=== PATIENT | male | born 1950 | race Caucasian/White ===

== ENCOUNTER 2018-06-11 08:47 | Emergency (ER) | payer OTHER ==
[~2018-06-11] VITALS: Ht 172.7 cm; Wt 86.2 kg
[~2018-06-11 08:47] MED LIST: ALPR.5 PO; ASPI81CH PO; Aldactone25 MG PO; BENAML20/5 PO; CARV3.125 PO; Cardizem Cd180 MG PO; ELIQUIS5 MG PO; LOSA25 PO; Lopressor 25 mg25 MG GT; NEBI5 PO; OMEP20ER PO; SITA100T2 PO; XARELTO20 MG PO
[2018-06-11 09:52] LABS: BASOPHILS ABSOLUTE AUTO 0.05 K/mm3 (0.00-0.23); BASOPHILS PERCENT AUTO 1 % (0-2); EOSINOPHILS ABSOLUTE AUTO 0.08 K/mm3 (0.00-0.68); EOSINOPHILS PERCENT AUTO 1 % (0-6); Hematocrit 40.5 % (37.0-53.0); Hemoglobin 13.8 g/dL (13.5-17.5); IMMATURE GRAN ABSOLUTE AUTO 0.09 K/mm3 (0.00-0.10); IMMATURE GRAN PERCENT AUTO 1 % (0-1); LYMPHOCYTES ABSOLUTE AUTO 1.07 K/mm3 (0.84-5.20); LYMPHOCYTES PERCENT AUTO 16 % (21-46); MONOCYTES ABSOLUTE AUTO 1.06 K/mm3 (0.16-1.47); MONOCYTES PERCENT AUTO 16 % (4-13); Mean Corpuscular HGB 36.4 pg (26.0-34.0); Mean Corpuscular HGB Conc 34.1 g/dL (31.5-36.5); Mean Corpuscular Volume 107 fL (80-100); Mean Platelet Volume 10.9 fL (9.1-12.4); NEUTROPHILS ABSOLUTE AUTO 4.38 K/mm3 (1.96-9.15); NEUTROPHILS PERCENT AUTO 65 % (41-73); Platelet Count 125 K/mm3 (150-400); RDW Coefficient Variation 12.9 % (11.7-14.2); RDW Standard Deviation 51.1 fL (35.1-46.3); Red Blood Cell Count 3.79 M/mm3 (4.30-5.90); White Blood Cell Count 6.73 K/mm3 (4.00-11.30)
[2018-06-11 10:14] LABS: Alanine Aminotransfer (ALT/SGP 42 U/L (12-78); Albumin, Blood 3.9 g/dL (3.4-5.0); Albumin/Globulin Ratio 1.1 (0.8-1.8); Alk Phos 84 U/L (50-136); Anion Gap 10 mmol/L (6-16); Aspartate Aminotrans (AST/SGOT 120 U/L (12-37); Bilirubin, Total 1.5 mg/dL (0.1-1.0); Blood Urea Nitrogen 10 mg/dL (8-24); Bun/Creatinine Ratio 10.5 (12.0-20.0); CO2, Blood 27 mmol/L (21-32); Calcium, Blood 9.1 mg/dL (8.5-10.1); Chloride, Blood 100 mmol/L (98-108); Creatinine, Blood 0.96 mg/dL (0.60-1.20); Globulin, Blood 3.7 g/dL (2.2-4.0); Glomerular Filtration Rate >60 (60-); Glucose, Blood 118 mg/dL (70-99); Potassium, Blood 3.5 mmol/L (3.5-5.5); Sodium, Blood 137 mmol/L (136-145); Total Protein, Blood 7.6 g/dL (6.4-8.2)
[2018-06-11] MEDS ORDERED: CHLO25 PO (12:00)
[2018-06-11] MEDS ORDERED: Cardizem CD 12120 MG PO (12:00)
== END 2018-06-11 12:20 | disposition home or self-care (01) ==
LOC: ER 08:47
PROVIDERS: Emergency Medicine
DX: I48.91 Unspecified atrial fibrillation (principal); K85.90 Acute pancreatitis without necrosis or infection, unspecified; F10.10 Alcohol abuse, uncomplicated; I10 Essential (primary) hypertension; F17.200 Nicotine dependence, unspecified, uncomplicated
CPT/HCPCS: 36415; 71046; 80053; 83690; 83880; 84484; 85025; 93005; 93010; 96361; 96374; 96375; 99284-25; J2405; J7120

== ENCOUNTER 2018-06-25 17:42 | Emergency (ER) | payer OTHER ==
[~2018-06-25] VITALS: Ht 177.8 cm; Wt 86.2 kg
[~2018-06-25 17:42] MED LIST changes: +CHLO25 PO; +Cardizem CD 12120 MG PO
== END 2018-06-25 19:13 | disposition home or self-care (01) ==
LOC: ER 17:42
DX: F10.129 Alcohol abuse with intoxication, unspecified (principal); S50.312A Abrasion of left elbow, initial encounter; I10 Essential (primary) hypertension; I48.91 Unspecified atrial fibrillation; F17.200 Nicotine dependence, unspecified, uncomplicated; Z79.899 Other long term (current) drug therapy; W18.30XA Fall on same level, unspecified, initial encounter
CPT/HCPCS: 99283

== ENCOUNTER 2018-10-24 08:45 | Inpatient (IN) | payer OTHER ==
[~2018-10-24] VITALS: Ht 177.8 cm; Wt 73.3 kg
[2018-10-24 09:10] LABS: BASOPHILS ABSOLUTE AUTO 0.08 K/mm3 (0.00-0.23); BASOPHILS PERCENT AUTO 1 % (0-2); EOSINOPHILS ABSOLUTE AUTO 0.12 K/mm3 (0.00-0.68); EOSINOPHILS PERCENT AUTO 2 % (0-6); Hematocrit 40.4 % (37.0-53.0); Hemoglobin 14.1 g/dL (13.5-17.5); IMMATURE GRAN ABSOLUTE AUTO 0.05 K/mm3 (0.00-0.10); IMMATURE GRAN PERCENT AUTO 1 % (0-1); LYMPHOCYTES ABSOLUTE AUTO 1.89 K/mm3 (0.84-5.20); LYMPHOCYTES PERCENT AUTO 26 % (21-46); MONOCYTES PERCENT AUTO 14 % (4-13); Mean Corpuscular HGB 33.8 pg (26.0-34.0); Mean Corpuscular HGB Conc 34.9 g/dL (31.5-36.5); Mean Corpuscular Volume 97 fL (80-100); Mean Platelet Volume 11.3 fL (9.1-12.4); NEUTROPHILS ABSOLUTE AUTO 4.22 K/mm3 (1.96-9.15); NEUTROPHILS PERCENT AUTO 57 % (41-73); Platelet Count 90 K/mm3 (150-400); RDW Coefficient Variation 16.7 % (11.7-14.2); RDW Standard Deviation 59.9 fL (35.1-46.3); Red Blood Cell Count 4.17 M/mm3 (4.30-5.90); White Blood Cell Count 7.36 K/mm3 (4.00-11.30)
[2018-10-24 09:30] LABS: Prothrombin Time Results 10.8 Sec (9.7-11.5)
[2018-10-24 09:34] LABS: International Normalized Ratio 1.02
[2018-10-24 09:35] LABS: Alanine Aminotransfer (ALT/SGP 72 U/L (12-78); Albumin, Blood 3.9 g/dL (3.4-5.0); Albumin/Globulin Ratio 1.1 (0.8-1.8); Alk Phos 72 U/L (50-136); Anion Gap 17 mmol/L (6-16); Aspartate Aminotrans (AST/SGOT 175 U/L (12-37); Blood Urea Nitrogen 9 mg/dL (8-24); Bun/Creatinine Ratio 9.1 (12.0-20.0); CO2, Blood 22 mmol/L (21-32); Chloride, Blood 103 mmol/L (98-108); Creatinine, Blood 0.99 mg/dL (0.60-1.20); Globulin, Blood 3.6 g/dL (2.2-4.0); Glomerular Filtration Rate >60 (60-); Glucose, Blood 113 mg/dL (70-99); Potassium, Blood 3.5 mmol/L (3.5-5.5); Sodium, Blood 142 mmol/L (136-145); Total Protein, Blood 7.5 g/dL (6.4-8.2); Troponin I 0.021 ng/mL (0.000-0.040)
--- NOTE | 2018-10-24 18:26 | NUR ---
SHIFT SUMMARY PT ALERT AND ORIENTED. VS STABLE. O2 SATS REMAIN ABOVE 90% ON RA. BP STABLE. HR AFIB 100-110. PT TREMULOUS. PT ANXIOUS AND SENSITIVE TO LIGHT. LAST CIWA 15. MEDICATED PER EMAR FOR ETOH WITHDRAWAL. PT STATES HE DRINKS 5 GLASSES OF VODKA DAILY AND LAST DRINK WAS LAST NIGHT UNKNOWN TIME. CARDIZEM GTT INFUSING AT 10. WILL CONTINUE TO MONITOR AND REPORT TO ONCOMING RN. CALL LIGHT IN REACH. BED ALARM ON.
--- NOTE | 2018-10-24 20:28 | NUR ---
CARE ASSUMPTION PT A&O X4. PT RECENTLY MEDICATED PER CIWA/EMAR. CIWA CURRENTLY 6 AT THIS TIME. PT RESTING IN BED. AT BEDSIDE. MONITOR SHOWS AFIB, HR TRENDING DOWN SHOWING 80-110. CARDIZEM GTT INFUSING PER ORDERS. VSS. WILL CONTINUE TO MONITOR AND PROVIDE CARE.
[2018-10-25 03:54] LABS: BASOPHILS ABSOLUTE AUTO 0.04 K/mm3 (0.00-0.23); BASOPHILS PERCENT AUTO 1 % (0-2); EOSINOPHILS ABSOLUTE AUTO 0.15 K/mm3 (0.00-0.68); EOSINOPHILS PERCENT AUTO 3 % (0-6); Hematocrit 34.5 % (37.0-53.0); Hemoglobin 11.9 g/dL (13.5-17.5); IMMATURE GRAN ABSOLUTE AUTO 0.04 K/mm3 (0.00-0.10); IMMATURE GRAN PERCENT AUTO 1 % (0-1); LYMPHOCYTES ABSOLUTE AUTO 1.33 K/mm3 (0.84-5.20); LYMPHOCYTES PERCENT AUTO 23 % (21-46); MONOCYTES ABSOLUTE AUTO 0.63 K/mm3 (0.16-1.47); MONOCYTES PERCENT AUTO 11 % (4-13); Mean Corpuscular HGB 34.6 pg (26.0-34.0); Mean Corpuscular HGB Conc 34.5 g/dL (31.5-36.5); Mean Platelet Volume 11.9 fL (9.1-12.4); NEUTROPHILS ABSOLUTE AUTO 3.55 K/mm3 (1.96-9.15); NEUTROPHILS PERCENT AUTO 62 % (41-73); Platelet Count 62 K/mm3 (150-400); RDW Coefficient Variation 16.9 % (11.7-14.2); Red Blood Cell Count 3.44 M/mm3 (4.30-5.90); White Blood Cell Count 5.74 K/mm3 (4.00-11.30)
[2018-10-25 03:55] LABS: Mean Corpuscular Volume 100 fL (80-100)
[2018-10-25 04:09] LABS: Magnesium, Blood 1.9 mg/dL (1.6-2.4)
[2018-10-25 04:10] LABS: Anion Gap 10 mmol/L (6-16); Blood Urea Nitrogen 12 mg/dL (8-24); Bun/Creatinine Ratio 15.6 (12.0-20.0); CO2, Blood 25 mmol/L (21-32); Calcium, Blood 8.3 mg/dL (8.5-10.1); Chloride, Blood 103 mmol/L (98-108); Creatinine, Blood 0.77 mg/dL (0.60-1.20); Glomerular Filtration Rate >60 (60-); Glucose, Blood 118 mg/dL (70-99); Potassium, Blood 3.2 mmol/L (3.5-5.5); Sodium, Blood 138 mmol/L (136-145)
--- NOTE | 2018-10-25 04:22 | NUR ---
SHIFT SUMMARY PT A&O X4. VSS. MONITOR SHOWS AFIB, HR 80-100 AFTER CARDIZEM GTT ON STANDBY SINCE 2239 THIS SHIFT. PT CONTINUES TO BE TREMULOUS AND WEAK, DENIES HEADACHE, N&V. ATTEMPT TO GET PT OOB FOR BM THIS SHIFT W/ PT INABILITY TO SUPPORT SELF SITTING UP IN BED. PT THEN ASSISTED W/ BED SMYTH, UNABLE TO HAVE BM. EPISODES OF INCONTINENCE, PT WEARING ATTENDS. BED ALARM ON FOR FALL PRECAUTIONS. WILL CONTINUE TO MONITOR AND PROVIDE CARE UNTIL REPORT OFF TO DAY SHIFT RN.
--- NOTE | 2018-10-25 07:48 | NUR ---
AM NOTE. ASSUMED CARE OF PT APROX 0700, PT IS A&Ox3, ABLE TO TELL THIS RN PLACE,BIRTHDAY,WHY HE WAS HERE AND THE PRESIDENT, HOWEVER WHEN ASKED THE DATE THE PT STATED IT WAS "MARCH OR APRIL". PT IS CURRENTLY IN AFIB IN THE 80'S-100'S, CARDIZEM GTT IS OFF. PT IS ON CIWA PROTOCOL, CURRENT CIWA IS 9. PT HAS SEVERE TREMORS. PT'S BP 112/75, NO EDEMA NOTED ON ASSESSMENT. L/S CLEAR T/O DIM IN THE BASES. BT PRESENT AND HYPRACTIVE, ABD IS SOFT AND TENDER TO PALP IN THE LUQ. PROVIDER AT THE BEDSIDE THIS AM WITH . CALL LIGHT IN REACH
--- NOTE | 2018-10-25 14:38 | NUR ---
PT UPDATE... PT'S CALLED THIS RN FOR UPDATE. PT'S STATED SHE WAS AFRIAD OF HIM COMING HOME AT THIS TIME. PT'S STATED THAT "FOR THE LAST SEVERAL MONTHS I HAVE BEEN DEALING WITH HIM FALLING ALOT, AND BEING VERY, VERY WEAK...I DON'T THINK THAT I CAN PROPERLY TAKE CARE OF HIM AT HOME RIGHT NOW." CURRENTLY THE PT IS UNABLE TO SIT UP IN THE BED WITHOUT HELP, PT IS ABLE TO PULL HIMSELF UP WITH THE SIDERAIL BUT IS NOT ABLE TO KEEP HIMSELF UPRIGHT. WHEN PT WAS TRANSFERED TO THE [facility] PT WAS A 3 PERSON TRANSFER BACK TO BED. PT HAS BEEN CONFUSED, LAST CIWA WAS 14. PT WAS MEDICATED PER CIWA PROTOCOL. CALL LIGHT IN REACH, BED ALARM IS ON WILL CONTINUE TO MONITOR.
--- NOTE | 2018-10-25 17:36 | NUR ---
PT FALL... AT 1645 THIS RN WAS SITTING OUTSIDE OF THIS PT'S ROOM CHARTING ON THE COMPUTER WHEN THIS RN HEARD A CRASH AND THUMP, THE BED ALARM THEN WENT OFF. THE PT WAS ATTEMPTING TO GET OUT OF BED, FELL, HIT HIS HEAD ON THE BASE OF THE IV POLE BEFORE THE BEDALARM SOUNDED. 3 SIDERAILES WERE UP AND THE BEDSIDE TABLE WAS ON THE SIDE OF THE BED WITH RAIL THAT WAS DOWN. IT WAS NOTED THAT BLOOD WAS DRIPPING FROM THE PT'S LEFT FOREHEAD AND LEFT HAND/WRIST. THE HOVER MAT AND HOVER JAMES WAS USED TO GET THE PT BACK INTO BED. 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 PT DENIES ANY PAIN TO HIS HEAD, SHOULDER, HIP OR ARM AT THIS TIME. PROVIDER WAS CALLED, ORDERS FOR STAT HEAD CT AND JUANIS VEST WERE OBTAINED. PT'S WAS CALLED AND NOTIFIED OF THE FALL. CALL LIGHT IN REACH, BED ALARM IS ON WITH JUANIS VEST WILL CONTINUE TO MONITOR.
--- NOTE | 2018-10-25 18:26 | NUR ---
PT UPDATE... PT RETURNED FROM CT SCAN APROX 1800. PT WAS ATTEMPTING TO CRAWL OUT OF BED, PT WAS AGITATED WANTING TO LEAVE, PT'S CIWA SCORE WAS 14. PT MEDICATED PER EMAR. WILL CONTINUE TO MONITOR.
--- NOTE | 2018-10-25 18:28 | NUR ---
SHIFT SUMMARY. PT HAS BEEN SLIGHTLY CONFUSED ALL SHIFT. PT HAS BEEN MEDICATED PER [facility] PROTOCOLS. PT IS CURRENTLY IN JUANIS VEST (SEE PT FALL NOTE.) PT WAS STILL ATTEMPTING TO CLIMB OUT OF BED AFTER FALL, PT WAS MEDICATED PER CWIA PROTOCOLS AND HAS CALMED DOWN SLIGHTLY. PT'S VS STABLE AT THIS TIME. JUANIS VEST IS IN PLACE, BED ALARM IS ON, WILL CONTINUE TO MONITOR UNTIL REPORT IS GIVEN TO ONCOMING RN.
--- NOTE | 2018-10-25 19:31 | NUR ---
CARE ASSUMPTION PT WAKES TO LOUD VERBAL STIMULATION AND ARM RUB. PT ORIENTED TO NAME, , LOCATION AND RECENT EVENT OF JUST PREVIOUSLY FALLING. PT BELIEVES THE MONTH TO BE DECEMBER. PT REORIENTED TO TIME. BUMP NOTED ON L SIDE OF PT FOREHEAD, SEE PHOTO IN CHART. PT DENYING PAIN, DENYING HEADACHE, DENYING NAUSEA. TREMORS NOTED BILAT HANDS. PT RESTRAINED IN JUANIS VEST, CONTINUING TO ATTEMPT TO GET OOB. WILL CONTINUE TO MONITOR AND PROVIDE CARE.
--- NOTE | 2018-10-25 23:50 | NUR ---
UPDATE PT NO LONGER AWARE OF CURRENT LOCATION AND NO LONGER RECALLS HAVING FALLEN TODAY. PT CONTINUES TO BE TREMULOUS W/ MULTIPLE ATTEMPTS TO GET OUT OF BED. PT REMAINS IN JUANIS VEST W/ BED ALARM ON. PT ASKING TO STAND, STAFF REMINDING PT OF CURRENT CONDITION AND REASONING FOR RESTRAINTS AND DISALLOWANCE OF PT STANDING AT THIS TIME. PT REPORTING "JUST A TOUCH OF A HEADACHE" AT THIS TIME. CIWA 13 AT THIS TIME, MEDICATING PER EMAR.
--- NOTE | 2018-10-26 05:19 | NUR ---
SHIFT SUMMARY PT CONTINUES TO BE CONFUSED, RESTRAINED W/ JUANIS VEST AND BED ALARM ON. CIWA TX PER PROTOCOL/EMAR. VSS. MONITOR SHOWS AFIB, HR 80-110. PT INCONTINENT OF STOOL AND URINE, PASSING 3 LOOSE BROWN/YELLOW BM'S THIS SHIFT AND DARK URINE. PRN LANCE CARE/ATTENDS CHANGES PROVIDED. PT ACTIVELY FIDGETING AND REPOSITIONING SELF IN BED WHEN NOT SLEEPING. WILL CONTINUE TO MONITOR AND PROVIDE CARE UNTIL REPORT OFF TO DAY SHIFT RN.
--- NOTE | 2018-10-26 08:08 | NUR ---
AM NOTE. ASSUMED CARE OF PT APROX 0700, PT IS A&Ox3, PT IS UNABLE TO STATE THE DATE/TIME, BUT STATED HE KNEW HE WAS HERE FOR AFIB AND TO "COME OFF ALCOHOL." PT'S AFIB IN THE 120'S-130'S AT THIS TIME, PT WAS MEDICATED WITH PO CARDIZEM, WILL CONTINUE TO MONITOR. PT'S BP 120/85, NO EDEMA NOTED ON ASSESSMENT. L/S CLEAR T/O DIM IN THE BASES. BT PRESENT AND HYPERACTIVE, ABD IS SOFT AND NONTENDER TO PALP. PT'S LAST CIWA WAS 11, PT IS IN JUANIS VEST AT THIS TIME. WILL CONTINUE TO MONITOR AND MEDICATE PER PROTOCOL/EMAR. BED ALARM IS ON, JUANIS VEST IN PLACE WILL CONTINUE TO MONITOR.
[2018-10-26 08:47] LABS: Anion Gap 10 mmol/L (6-16); Blood Urea Nitrogen 11 mg/dL (8-24); Bun/Creatinine Ratio 14.4 (12.0-20.0); CO2, Blood 23 mmol/L (21-32); Calcium, Blood 8.7 mg/dL (8.5-10.1); Chloride, Blood 105 mmol/L (98-108); Creatinine, Blood 0.76 mg/dL (0.60-1.20); Glomerular Filtration Rate >60 (60-); Glucose, Blood 102 mg/dL (70-99); Magnesium, Blood 1.8 mg/dL (1.6-2.4); Sodium, Blood 138 mmol/L (136-145)
--- NOTE | 2018-10-26 18:16 | NUR ---
SHIFT SUMMARY. NO ACUTE CHANGES NOTED THIS SHIFT. PT HAS BEEN CONFUSED OFF AND ON T/O SHIFT PT HAS BEEN UNABLE TO STATE THE DATE/MONTH, AND AT TIMES PT HAS STATED HE IS "AT HOME". PT HAS ATTEMPTED TO CLIMB OUT OF BED SEVERAL TIMES TODAY, JUANIS VEST IS STILL ON. PT'S VS STABLE AT THIS TIME. PT HAS BEEN MEDICATED PER CIWA PROTOCOL WITH CIWAS FROM 10-14. PT'S AT THE BEDSIDE TODAY AND WAS UPDATED ON PLAN OF CARE AND PT'S CONDITION. CALL LIGHT IN REACH, BED IS LOCKED AND LOW WILL CONTINUE TO MONITOR UNTIL REPORT IS GIVEN TO ONCOMING RN.
[2018-10-27 04:15] LABS: BASOPHILS ABSOLUTE AUTO 0.06 K/mm3 (0.00-0.23); BASOPHILS PERCENT AUTO 1 % (0-2); EOSINOPHILS ABSOLUTE AUTO 0.22 K/mm3 (0.00-0.68); EOSINOPHILS PERCENT AUTO 3 % (0-6); Hematocrit 36.6 % (37.0-53.0); Hemoglobin 12.4 g/dL (13.5-17.5); IMMATURE GRAN ABSOLUTE AUTO 0.08 K/mm3 (0.00-0.10); IMMATURE GRAN PERCENT AUTO 1 % (0-1); LYMPHOCYTES ABSOLUTE AUTO 1.76 K/mm3 (0.84-5.20); LYMPHOCYTES PERCENT AUTO 22 % (21-46); MONOCYTES ABSOLUTE AUTO 0.83 K/mm3 (0.16-1.47); MONOCYTES PERCENT AUTO 11 % (4-13); Mean Corpuscular HGB Conc 33.9 g/dL (31.5-36.5); Mean Corpuscular Volume 100 fL (80-100); Mean Platelet Volume 11.9 fL (9.1-12.4); NEUTROPHILS ABSOLUTE AUTO 4.97 K/mm3 (1.96-9.15); NEUTROPHILS PERCENT AUTO 63 % (41-73); Platelet Count 72 K/mm3 (150-400); RDW Coefficient Variation 16.4 % (11.7-14.2); Red Blood Cell Count 3.65 M/mm3 (4.30-5.90); White Blood Cell Count 7.92 K/mm3 (4.00-11.30)
[2018-10-27 04:37] LABS: Anion Gap 11 mmol/L (6-16); Blood Urea Nitrogen 15 mg/dL (8-24); Bun/Creatinine Ratio 16.3 (12.0-20.0); CO2, Blood 23 mmol/L (21-32); Calcium, Blood 8.8 mg/dL (8.5-10.1); Chloride, Blood 105 mmol/L (98-108); Creatinine, Blood 0.92 mg/dL (0.60-1.20); Glomerular Filtration Rate >60 (60-); Glucose, Blood 97 mg/dL (70-99); Magnesium, Blood 1.8 mg/dL (1.6-2.4); Potassium, Blood 3.8 mmol/L (3.5-5.5); Sodium, Blood 139 mmol/L (136-145)
--- NOTE | 2018-10-27 05:36 | NUR ---
SHIFT SUMMARY PT SLEEPING IN ROOM COMFORTABLY AT THIS TIME. NO ACUTE CHANGES IN STATUS T/O NIGHT. PT SLEPT WELL. AWOKE AND WAS AGGITATED AT SEVERAL POINTS T/O NIGHT, AND PT WAS EASILY DIRECTABLE. JUANIS VEST REMAINED IN PLACE T/O D/T PT CONTINUED EFFORTS TO GET OUT OF BED, CONTINUED CONFUSION, AND AGGITATION, AND ELEVATED CIWA SCORES. PT DENIES PAIN. RESP EVEN UNLABORED ON RA W/ SATS >92%. CALL LIGHT IN REACH, BED ALARM ON FOR SAFETY.
--- NOTE | 2018-10-27 08:13 | NUR ---
AM NOTE. ASSUMED CARE OF PT APROX 0700, PT IS A&Ox4 TODAY, PT IS ABLE TO STATE THE MONTH,WHERE HE IS, WHY AND NAME AND BIRTHDAY. PT WORKED WITH PHYSICAL THERAPIST THIS AM. PT WALKED WITH FWW AND GAIT BELT WITH 2 PEOPLE TO THE NURSES STATION. PT IS UP IN CHAIR FOR BREAKFAST AND IS ABLE TO FEED HIMSELF. PT'S VS STABLE AT THIS TIME. WILL CONTINUE TO MONITOR.
--- NOTE | 2018-10-27 15:01 | NUR ---
PT UPDATE... PT'S CALLED THIS RN AND VOICED CONCERNS ABOUT THE PT GOING HOME, PT'S STATED SHE FELT INPATIENT PT/OT WOULD BE BETTER AT THIS POINT IN TIME. PT'S VS HAVE BEEN STABLE SINCE MEDICATION CHANGES WERE MADE THIS AM. PT'S HR HAS BEEN 90'S-119 WITH ACTIVITY, THIS IS AN IMPROVEMENT FROM EARLIER TODAY WHEN THE PT'S HR WAS IN THE 150'S-160'S WITH ACTIVITY. WILL CONTINUE TO MONITOR.
--- NOTE | 2018-10-27 18:37 | NUR ---
SHIFT SUMMARY. NO ACUTE NEGATIVE CHANGES NOTED THIS SHIFT. PT'S AT THE BEDSIDE THIS AM, PT HAS BEEN A&Ox4, NO SIGNS OF CONFUSION THIS SHIFT. PT HAS BEEN UP IN CHAIRS FOR MEALS. PT HAS BEEN C/O OF HEADACHE, PT HAS BEEN MEDICATED PER EMAR. PT'S CIWA HAS BEEN 5-8. PT HAS BEEN VOIDING IN URINAL INDEPENDENTLY WITH SOME EPISODES OF INCONT. PT'S VS HAVE BEEN STABLE. PT DENIES ANY CHEST PAIN/PRESSURE AT THIS TIME. PT'S HEART RATE INCREASES WITH ACTIVITY FROM AFIB IN THE 90'S-100'S TO 120'S BUT TRENDS BACK DOWN WITH REST. CALL LIGHT IN REACH, BED IS LOCKED AND LOW WITH BED ALARM ON WILL CONTINUE TO MONITOR UNTIL REPORT IS GIVEN TO ONCOMING RN.
--- NOTE | 2018-10-28 05:21 | NUR ---
SHIFT SUMMARY PT SLEEPING IN ROOM COMFORTABLY AT THIS TIME. NO ACUTE CHANGES IN STATUS T/O NIGHT. PT SLEPT WELL WOKE TO VERBAL STIMULI. PT WAS AOX4 AT START OG SHIFT AND REMAINED ORIENTED T/O. CIWA SCORES REMAINED AT APPROX 2-3. PT WAS ABLE TO CONTRACT FOR SAFETY WITH THIS RN, TO UTILIZE CALL LIGHT IF PT NEEDS TO GET OUT OF BED TO USE BATHROOM. PT VERBALIZED UNDERSTANDING OF NEED FOR WAITING FOR STAFF TO ASSIST WITH STANDING, AGREES TO CALL AND CONTRACT FOR SAFETY FOR FALL PREVENTION. RESP EVEN UNLBAORED ON RA W/ SATS >92%. DENIES CP, DENIES SOB. PT MEDICATED ONCE FOR ADAMS. BED ALRM REMAINS ON FOR SAFETY. CALL LIGHT IN REACH.
--- NOTE | 2018-10-28 08:44 | NUR ---
ASSUMED CARE PT. ALERT THIS AM, STATES YEAR IS "2000", AND STATES LOCATION IS "[place]". PT. REORIENTED AT THIS TIME. FLAT AFFECT. COOPERATIVE WITH CARE. PT ABLE TO FEED SELF BREAKFAST AND REPOSTIION SELF IN BED NEEDED. NADN. VSS THIS AM. CALL LIGHT IN REACH. BED ALARM ON FOR SAFETY, WITH BED IN LOW POSITION
--- NOTE | 2018-10-28 16:35 | NUR ---
REPORT TO MEDICAL FLOOR RNJODY PT TO BE TAKEN TO MEDICAL FLOOR VIA WHEEL CHAIR. PT. VSS UPON TRANSFER. PT. CALLED, LMOM REGARDING NEW ROOM NUMBER.
--- NOTE | 2018-10-28 17:44 | NUR ---
PT SETTLED INTO ROOM. AOX4 AND COOPERATIVE OF CARE. RESTING AT THIS TIME CALL LIGHT IN REACH. WILL MONITOR.
--- NOTE | 2018-10-29 05:18 | NUR ---
SHIFT SUMMARY: PATIENT HAS BEEN PLEASANT AND COOPERTIVE ALL NIGHT. VS HAVE BEEN STEADY WITH A HR THAT IS VERY IRREGULAR RAISING HIS VIEW SCORE THIS LAST VITALS CHECK. HR WAS IN 110'S BUT ON RECHECK HE WAS 90 RADIAL. HE DENIES ANY SYMPTOMS OF THE ELEVATION OF HR. STATES HE FEELS FINE. OVERALL HE DID WELL THROUGHOUT THE NIGHT WITH NO ACUTE CHANGES OR CONCERNS TO NOTE. WAS UP AND DOWN TO THE BATHROOM, CALLED APPROPRIATELY. DENIED ANY DISCOMFORT. MEDS WERE GIVEN PER EMAR. WILL REPORT TO ONCOMING SHIFT.
--- NOTE | 2018-10-29 06:41 | NUR ---
FALL REPORT: PATIENT WAS GETTING UP OUT OF BED, BED ALARM LIGHTS WERE ON BUT DID NOT SOUND, HE HAD AHOLD OF THE WALKER AND LEGS WENT OUT FROM UNDERNEATH HIM SLIDING OFF THE BED TO THE FLOOR, THIS RN WAS SITTING OUT SIDE THE ROOM, HEARD A SOUND AND i GOT TO THE ROOM SAW HIM HIT JUST SIT DOWN ON THE FLOOR, NO INJURIES WERE NOTED, DENIED PAIN ANY WHERE. VS WERE TAKEN ALL WNL, EXCEPT HR WHICH WAS SLIGHTLY ELEVATED NORMAL FOR THE PATIENT. SKIN CHECK SHOWED NO RED CHATMAN OR OTHER ABRASIONS. WILL DO IRIS OF THE EVENT, CHARGE NURSE NOTIFIED.
--- NOTE | 2018-10-29 16:02 | NUR ---
SUMMARY PT IS A/O X2-3, ANSWERS MOST QUESTIONS APPROP HOWEVER STATED YEAR "2000", STATE DURING NOC AWOKE CONFUSED, THOUGHT HE WAS @ HOME & TRIED TO GET UP ON HIS OWN, SLID TO FLOOR. STATE THINKING HAS CLEARED. STATE CONTINUING WEAKNESS, FATIGUE. HX ETOH ABUSE. STATE TREMORS HAVE IMPROVED, NONE VISIBLE THIS AFTERNOON. CIWA 6 THIS AM D/T H/A, TYLENOL GIVEN FOR RELIEF. 4-5 DAYS W/O ETOH, DR IZAGUIRRE CHANGE SCHEDULED LIBRIUM TO PRN. BP LOW TODAY, AM METOPROLOL HELD, DR JONES PARAMETERS. PT UP w PHYTHER THIS AFTERNOON, AMBULATE IN [place]. TRANSIT WORKER STATE PLAN FOR TRANSFER TO SNF TOMORROW, PT & INFORMED.
--- NOTE | 2018-10-29 20:46 | NUR ---
ASSUMED CARE OF THE PATIENT, REPORTED HE MISSED THE URINAL, AND GOT IT ALL OVER HIS BED. ASSISTED HIM TO THE BATHROOM WITH USE OF GAIT BELT AND WALKER. HE SAT ON THE TOILET TO VOID WHILE LINEN WAS CHANGED. GAVE HIM A SHOWER, BOTTOM RED AND DRY. CLEANSED AND GAVE A NEW GOWN, SOCKS, AND ASSISTED HIM BACK TO BED, WASHED GLASSES AND GAVE BACK, BRUSHED HAIR. HE DENIED MEDS DUE TO STARTING TO GET DIARRHA, HELD BLOOD PRESSURE MEDS DUE TO HYPOTENSION. TUCKED INTO BED, CALL LIGHT PLACED IN REACH, ASSESSMENT COMPLETED SEE CHART FOR DETAILS. BED IN LOW POSITION AND BED ALARM IS ON. WILL CONTINUE TO MONITOR.
--- NOTE | 2018-10-30 05:21 | NUR ---
SHIFT SUMMARY: KIT HAD A GOOD NIGHT. NO ACUTE CHANGES OR CONCERNS. SHOWER WAS PROVIDED DUE TO INCONTIENCE OF URINE IN BED. LINEN WAS CHANGED. BED ALARM STAYED ON AND WAS WORKING WHEN HE ATTEMPTED TO GET OUT OF BED, FORGETFUL WITH CALL LIGHT USE. ASSISTED HIM WITH URINAL USE OR GOING TO THE BATHROOM, 1 PERSON ASSIST. IV PATENT. NO MEDS WERE GIVEN DUE TO STARTING OF LOOSE BM AND HYPOTENSION TONIGHT. HE HAD A VIEW SCORE OF 4 DUE TO HYPOTENSION AND TACHYCARDIA. REPEAT OF VITALS SHOWED WNL VEIW SCORE WAS DOWN TO 2. SLEPT REST OF NIGHT, CALL LIGHT REMAINED WITH IN REACH, AND BED ALARM ON. WILL REPORT TO DAY SHIFT RN.
[2018-10-30 09:48] LABS: Hematocrit 36.3 % (37.0-53.0); Hemoglobin 12.3 g/dL (13.5-17.5); Mean Corpuscular HGB 34.9 pg (26.0-34.0); Mean Corpuscular HGB Conc 33.9 g/dL (31.5-36.5); Mean Platelet Volume 11.6 fL (9.1-12.4); Platelet Count 128 K/mm3 (150-400); RDW Coefficient Variation 16.1 % (11.7-14.2); RDW Standard Deviation 62.4 fL (35.1-46.3); Red Blood Cell Count 3.52 M/mm3 (4.30-5.90); White Blood Cell Count 5.68 K/mm3 (4.00-11.30)
[2018-10-30 09:51] LABS: Mean Corpuscular Volume 103 fL (80-100)
[2018-10-30 10:06] LABS: Anion Gap 8 mmol/L (6-16); Blood Urea Nitrogen 16 mg/dL (8-24); Bun/Creatinine Ratio 17.4 (12.0-20.0); CO2, Blood 27 mmol/L (21-32); Chloride, Blood 105 mmol/L (98-108); Creatinine, Blood 0.92 mg/dL (0.60-1.20); Glomerular Filtration Rate >60 (60-); Glucose, Blood 104 mg/dL (70-99); Potassium, Blood 4.1 mmol/L (3.5-5.5); Sodium, Blood 140 mmol/L (136-145)
[2018-10-30] MEDS ORDERED: Excedrin Extra1 EACH PO (11:54)
[2018-10-30] MEDS ORDERED: LOSA25 PO (11:55)
--- NOTE | 2018-10-30 13:05 | NUR ---
DISCHARGE/TRANSFER SNF PT IS A/O X 2-3 THIS AM, REORIENTED TO DATE/TIME, EASILY. STATE H/A, PRN EXCEDRIN GIVEN FOR RELIEF. STATE ANXIOUSNESS, PRN LIBRIUM GIVEN. HE STATE CONTINUING WEAKNESS/FATIGUE HOWEVER STATE READY FOR INCREASED PHYTHER, LOOKING FORWARD TO REHAB. DR ZIAGUIRRE IN TO SEE HIM, CHECK LABWORK, STATE OK FOR TRANSFER TODAY, PROVIDE ORDERS. REELING AND TUBING MACHINE OPERATOR MAKE ARRANGEMENT FOR TRANSFER TO [facility] TODAY @ APPROX 1430 VIA W/C VAN. REPORT CALLED TO MATT CABRERA. PT & HEENA INFORMED OF TRANSFER TIME. IV D/C INTACT. [employer]S REPAIRER WILL ASSIST PT TO DRESS/GATHER BELONGINGS.
[2018-10-30] MEDS ORDERED: CHLO25 PO (13:20)
[2018-10-30] MEDS ORDERED: METF500 PO (13:21)
[2018-10-30] MEDS ORDERED: METO100 PO (13:21)
[2018-10-30] MEDS ORDERED: FOLI1 PO (13:21)
[2018-10-30] MEDS ORDERED: OMEPRAZOLE20 MG PO (13:22)
== END 2018-10-30 14:45 | DRG 897 ==
LOC: ER 08:45 → PCU 08:46 → MEDS 10-28 17:20
PROVIDERS: Emergency Medicine; Internal Medicine; ADMIT Hospitalist
DX: F10.239 Alcohol dependence with withdrawal, unspecified (principal); I42.9 Cardiomyopathy, unspecified; I48.2 Chronic atrial fibrillation; J44.9 Chronic obstructive pulmonary disease, unspecified; E87.6 Hypokalemia; Z74.09 Other reduced mobility; D69.6 Thrombocytopenia, unspecified; K21.9 Gastro-esophageal reflux disease without esophagitis; F17.210 Nicotine dependence, cigarettes, uncomplicated; I11.0 Hypertensive heart disease with heart failure; I50.9 Heart failure, unspecified
CPT/HCPCS: 36415; 70450; 71045; 80048; 80053; 82947; 83735; 84484; 85025; 85027; 85610; 85730; 93005; 93010; 96365; 96366; 96375; 96376; 97110; 97116; 97162; 97530; 99285-25; A9270; G0378; J2060; J3411; J3475; J7030; J7042

== ENCOUNTER 2019-06-22 12:13 | Inpatient (IN) | payer MEDICARE ==
[~2019-06-22] VITALS: Ht 177.8 cm; Wt 80.1 kg
[~2019-06-22 12:13] MED LIST changes: +Excedrin Extra1 EACH PO; +FOLI1 PO; +METF500 PO; +METO100 PO; +OMEPRAZOLE20 MG PO
[2019-06-22 12:45] LABS: BASOPHILS PERCENT AUTO 1 % (0-2); EOSINOPHILS ABSOLUTE AUTO 0.04 K/mm3 (0.00-0.68); EOSINOPHILS PERCENT AUTO 0 % (0-6); Hematocrit 38.6 % (37.0-53.0); Hemoglobin 13.5 g/dL (13.5-17.5); IMMATURE GRAN ABSOLUTE AUTO 0.28 K/mm3 (0.00-0.10); IMMATURE GRAN PERCENT AUTO 3 % (0-1); LYMPHOCYTES ABSOLUTE AUTO 0.52 K/mm3 (0.84-5.20); LYMPHOCYTES PERCENT AUTO 6 % (21-46); MONOCYTES ABSOLUTE AUTO 0.88 K/mm3 (0.16-1.47); MONOCYTES PERCENT AUTO 10 % (4-13); Mean Corpuscular HGB 37.8 pg (26.0-34.0); Mean Corpuscular Volume 108 fL (80-100); Mean Platelet Volume 12.8 fL (9.1-12.4); NEUTROPHILS ABSOLUTE AUTO 7.36 K/mm3 (1.96-9.15); NEUTROPHILS PERCENT AUTO 80 % (41-73); Platelet Count 201 K/mm3 (150-400); RDW Standard Deviation 75.7 fL (35.1-46.3); Red Blood Cell Count 3.57 M/mm3 (4.30-5.90); White Blood Cell Count 9.18 K/mm3 (4.00-11.30)
[2019-06-22 13:01] LABS: International Normalized Ratio 1.24; Prothrombin Time Results 13.1 Sec (9.7-11.5)
[2019-06-22 14:00] LABS: Albumin, Blood 2.3 g/dL (3.4-5.0); Albumin/Globulin Ratio 0.6 (0.8-1.8); Bilirubin, Total 38.1 mg/dL (0.1-1.0); Bun/Creatinine Ratio 14.9 (12.0-20.0); Creatinine, Blood 1.61 mg/dL (0.60-1.20); Potassium, Blood 4.6 mmol/L (3.5-5.5); Total Protein, Blood 6.3 g/dL (6.4-8.2)
[2019-06-22 16:42] LABS: Source, Urine Clean Catch
[2019-06-22 17:04] LABS: Blood, Urine 2+ (Neg); Glucose Qualitative, Urine Neg (Neg); Ketones, Urine Neg (Neg); Leukocyte Esterase, Urine 1+ (Neg); Nitrite, Urine Neg (Neg); Protein, Urine 2+ (Neg); Urobilinogen, Urine 4+ (Normal)
[2019-06-22 17:05] LABS: Bilirubin, Urine 3+ (Neg)
[2019-06-22 17:06] LABS: Appearance, Urine Hazy (Clear); Color, Urine Amber (P-Yellow)
[2019-06-22 17:07] LABS: Bacteria Many /hpf; Squamous Epithelial Cells Few /hpf (Few)
[2019-06-22] MEDS ORDERED: QUETIAPINE FUMA25 MG PO (17:49)
[2019-06-22] MEDS ORDERED: Diltiazem ER180 M1 PO (17:49)
[2019-06-22] MEDS ORDERED: NEBI5 PO (17:49)
[2019-06-22] MEDS ORDERED: DIGOX250 MCG PO (17:55)
--- NOTE | 2019-06-22 19:30 | NUR ---
PATIENT BEING ADMITTED TO THE FLOOR FOR CIRRHOSIS OF THE LIVER, AND UTI. HE ARRIVED VIA GURNEY, TRANSFERRED VIA SLIDER SHEET. KIT IS AOX2, UNABLE TO STATES DATE, TIME, OR MONTH. SAID IT WAS FEBUARY. DID STATES PLACE AND SITUATION. DID GIVE SOME HISTORY BUT WOULD ANSWER A QUESTION ONE WAY THEN ASKED AGAIN HE CHANGED THE ANSWER. POOR HISTORIAN. SKIN IS VERY JAUDICE LIKE A YOKE FROM AN EGG. SCABS NOTED TO BILATERAL KNEES AND ELBOWS FROM FALLS. BRUISES WELL. HISTORY OF ETOH STATES HE DRINKS VODKA DAILY 4-5 SHOTS FOR A VERY LONG TIME. DID NOT ANSWER WHEN ASKED WHEN LAST DRINK WAS. TREMORS NOTED IN HANDS. DENIES VISUAL AND AUDITORY HULLUCINATIONS. LUNG SOUNDS CLEAR BUT DIMINISHED, HISTORY OF COPD AND STILL SMOKES A PACK A DAY. HR IRREGULAR, AFIB HISTORY. DENIES CHEST PAIN, PALPITATIONS. ABDOMIN MILD DISTENTION, NONTENDER. DENIES NAUSEA. DID REPORT HE HAS HAD NAUSEA. BM TODAY. INCONTIENT OF URINE. CALL LIGHT GIVEN. BED ALARM PLACED DUE TO CONFUSION. WILL CONTINUE TO MONITOR.
--- NOTE | 2019-06-22 21:05 | NUR ---
HUNG IV FLUIDS AND ANTIBOTICS. GAVE PATIENT MILK AND A SANDWHICH. HE WAS UNABLE TO OPEN MUSTARD PACKET OR HIS MILK. HE HAD DIFFICULTY PICKING UP HIS SANDWHICH OR HOLDING HIS MILK FOR A DRINK. WHEN TAKING A BIT HE MOVED SLOWLY AND ALMOST COULD NOT GET IT TO HIS MOUTH TO EAT. NEEDED SOME ASSISTANCE TO EAT. APPEARS TO BE SWALLOWING OK AT THIS TIME.
--- NOTE | 2019-06-22 21:49 | NUR ---
SPOKE TO CIELO SOLANO REGARDING ORDER FOR ETOH MONITORING. SHE SPOKE TO WHO SAID SHE MADE HIM QUIT DRINKING ABOUT A WEEK AGO. SHE HAS LIBRUIM AT HOME AND WAS GIVING IT TO HIM. SHE GOT HIM OVER THE JUST OF THE WITHDRAWLS. THEREFORE NO NEED FOR ETOH MONITORING. IF CHANGES TO CALL HER BACK.
--- NOTE | 2019-06-22 21:51 | NUR ---
RT REPORTED PATIENT DENIED CPAP AND SIGNED THE PAPER. HE DID AGREE TO THE CONTINUOUS PULSE OX. INFORMED CIELO SOLANO.
--- NOTE | 2019-06-22 23:08 | NUR ---
KIT WAS LAYING BACK IN BED, DENIES ANY NEEDS AT THIS TIME. IV INFUSING WITH NO PROBLEMS. CALL LIGHT IN REACH, BED ALARM ON.
[2019-06-22 23:47] LABS: Digoxin (Lanoxin) 2.12 ug/mL (0.80-2.00)
--- NOTE | 2019-06-23 05:09 | NUR ---
CALLED, PATIENT STATES OK TO TALK WITH HER. SHE CALLED TO FIND OUT ABOUT HOW HE DID OVER NIGHT. INFORMED HER OF HIS SITUATION. SHE WOULD LIKE TO KEEP INFORMED.
--- NOTE | 2019-06-23 05:10 | NUR ---
SHIFT SUMMARY: CAMMY WAS ADMITTED TO THE FLOOR LAST NIGHT WITH CIRRHOSIS OF THE LIVER AND UTI. HE IS AOX2, CONFUSED ON DATE, TIME, AND SHORT TERM MEMORY IS NOT GOOD RIGHT NOW. HISTORY OF ETOH LAST DRINK PER WAS A WEEK AGO. DOES HAVE MINOR TREMORS BUE. DIFFICULTY IN EATING LAST NIGHT, SEVERE WEAKNESS OF BUE AND BLE. WAS BARLEY ABLE TO GRAB HIS SANDWHICH LET ALONE TAKING A BITE WITH OUT ASSISTANCE. SMOKER COUGH NOTED OCCATIONALLY. INCONTINET OF BOWEL AND URINE. URINE CARLA COLOR. DENIED PAIN OR DISCOMFORT. VS WAS HYPOTENSIVE BUT THIS IMPROVED WITH IV FLUIDS INFUSING. IV FLUIDS X1 BAG ALMOST COMPLETE, ROCEPHIN GIVEN IVBP. WILL SL WHEN FLUIDS DONE. DENIED PAIN AND DISCOMFORT. CALLED TO CHECK ON PATIENT THIS AM. CALL LIGHT REMAINED IN REACH AND BED ALARM ON. WILL REPORT TO DAY SHIFT.
[2019-06-23 05:17] LABS: BASOPHILS ABSOLUTE AUTO 0.07 K/mm3 (0.00-0.23); BASOPHILS PERCENT AUTO 1 % (0-2); EOSINOPHILS ABSOLUTE AUTO 0.07 K/mm3 (0.00-0.68); EOSINOPHILS PERCENT AUTO 1 % (0-6); Hemoglobin 12.1 g/dL (13.5-17.5); IMMATURE GRAN PERCENT AUTO 2 % (0-1); LYMPHOCYTES ABSOLUTE AUTO 0.65 K/mm3 (0.84-5.20); LYMPHOCYTES PERCENT AUTO 7 % (21-46); MONOCYTES ABSOLUTE AUTO 1.19 K/mm3 (0.16-1.47); MONOCYTES PERCENT AUTO 13 % (4-13); Mean Corpuscular HGB 38.1 pg (26.0-34.0); Mean Corpuscular HGB Conc 34.6 g/dL (31.5-36.5); Mean Corpuscular Volume 110 fL (80-100); NEUTROPHILS PERCENT AUTO 76 % (41-73); Platelet Count 182 K/mm3 (150-400); RDW Coefficient Variation 19.6 % (11.7-14.2); RDW Standard Deviation 79.4 fL (35.1-46.3); Red Blood Cell Count 3.18 M/mm3 (4.30-5.90); White Blood Cell Count 9.18 K/mm3 (4.00-11.30)
[2019-06-23 05:36] LABS: Mean Platelet Volume 13.1 fL (9.1-12.4)
[2019-06-23 06:09] LABS: Albumin, Blood 1.9 g/dL (3.4-5.0); Albumin/Globulin Ratio 0.6 (0.8-1.8); Bilirubin, Total 32.2 mg/dL (0.1-1.0); Bun/Creatinine Ratio 16.7 (12.0-20.0); Calcium, Blood 8.4 mg/dL (8.5-10.1); Creatinine, Blood 1.44 mg/dL (0.60-1.20); Globulin, Blood 3.3 g/dL (2.2-4.0); Potassium, Blood 3.4 mmol/L (3.5-5.5); Total Protein, Blood 5.2 g/dL (6.4-8.2)
[2019-06-23 08:09] LABS: HBSAG SCREEN Negative (Negative); HEP A AB, IGM Negative (Negative); HEP B CORE AB, IGM Negative (Negative); HEP C VIRUS AB <0.1 (0.0-0.9)
--- NOTE | 2019-06-23 10:55 | NUR ---
SPOUSE CALLED AND UPDATED.
--- NOTE | 2019-06-23 11:42 | NUR ---
DR MANNING OFFICE NOTIFIED OF CONSULT.
--- NOTE | 2019-06-23 16:36 | NUR ---
SHIFT SUMMARY- PT A/O TO SELF AND PLACE ONLY. PT SLOW TO RESPOND AND GARBLED WET SPEECH. PT DENIES ANY COMPLAINTS T/O THE DAY. LS CLEAR/ DIMINISHED, ON RA. SUCTION COMPLETED T/O THE DAY, PT WITH WEAK MOIST COUGH. PT FAILED SWALLOW EVAL AND HAS BEEN NPO T/O THE DAY. PT STARTED ON NS AT 75ML/HR. TELE AFIB AT 79. PT JAUNDICED T/O, ORANGE URINE OUTPUT. PT INCONT OF BOWEL AND BLADDER. PT DECONDITIONED AND A 2 ASSIST OUT OF BED. AWAITING GI CONSULT. NO OTHER ACUTE CHANGES THIS SHIFT.
--- NOTE | 2019-06-23 19:05 | NUR ---
DR SPENCER IN TO SEE PT AT 1800. UPDATE GIVEN TO SPOUSE BY
[2019-06-24 04:37] LABS: BASOPHILS ABSOLUTE AUTO 0.08 K/mm3 (0.00-0.23); BASOPHILS PERCENT AUTO 1 % (0-2); EOSINOPHILS ABSOLUTE AUTO 0.11 K/mm3 (0.00-0.68); EOSINOPHILS PERCENT AUTO 1 % (0-6); Hematocrit 35.2 % (37.0-53.0); Hemoglobin 12.1 g/dL (13.5-17.5); IMMATURE GRAN ABSOLUTE AUTO 0.22 K/mm3 (0.00-0.10); IMMATURE GRAN PERCENT AUTO 3 % (0-1); LYMPHOCYTES ABSOLUTE AUTO 0.92 K/mm3 (0.84-5.20); LYMPHOCYTES PERCENT AUTO 11 % (21-46); MONOCYTES ABSOLUTE AUTO 0.98 K/mm3 (0.16-1.47); MONOCYTES PERCENT AUTO 11 % (4-13); Mean Corpuscular HGB 37.6 pg (26.0-34.0); Mean Corpuscular HGB Conc 34.4 g/dL (31.5-36.5); Mean Corpuscular Volume 109 fL (80-100); Mean Platelet Volume 12.7 fL (9.1-12.4); NEUTROPHILS ABSOLUTE AUTO 6.36 K/mm3 (1.96-9.15); NEUTROPHILS PERCENT AUTO 73 % (41-73); Platelet Count 183 K/mm3 (150-400); RDW Coefficient Variation 18.7 % (11.7-14.2); RDW Standard Deviation 75.5 fL (35.1-46.3); Red Blood Cell Count 3.22 M/mm3 (4.30-5.90); White Blood Cell Count 8.67 K/mm3 (4.00-11.30)
--- NOTE | 2019-06-24 04:46 | NUR ---
SHIFT SUMMARY PT SLEEPING MOST OF THE SHIFT. WAKENS EASILY. APPEARS TO ANSWER MOST QUESTIONS APPROPRIATELY BUT SPEECH IS GARBLED AND DIFFICULT TO UNDERSTAND AT TIMES. PT IS ALSO SLOW TO RESPOND. PT SKIN VERY JAUNDICED. NO ASCITES NOTED. URINE VERY CONCENTRATED, VERY DARK AND ORANGE IN COLOR. PT CONTINENT/INCONTINENT. ASKING FOR THE URINAL OR THE BEDPAN AT TIMES. PT HAS MOIST GURGLE TO THROAT. ORAL SUCTIONING Q [address] RUNNING AFIB 80'S. NPO THIS EVENING. POTENTIAL FOR DOBHOFF IF PT CONTINUES TO BE UNABLE TO SWALLOW. CALLED THIS EVENING. UPDATE GIVEN. VITAL SIGNS STABLE. WILL CONTINUE TO MONITOR AND REPORT TO DAY RN.
[2019-06-24 04:50] LABS: International Normalized Ratio 1.28; Prothrombin Time Results 13.5 Sec (9.7-11.5)
[2019-06-24 05:04] LABS: Alanine Aminotransfer (ALT/SGP 25 U/L (12-78); Albumin, Blood 1.8 g/dL (3.4-5.0); Albumin/Globulin Ratio 0.6 (0.8-1.8); Alk Phos 96 U/L (50-136); Anion Gap 7 mmol/L (6-16); Aspartate Aminotrans (AST/SGOT 99 U/L (12-37); Bilirubin, Total 29.9 mg/dL (0.1-1.0); Blood Urea Nitrogen 23 mg/dL (8-24); CO2, Blood 23 mmol/L (21-32); Calcium, Blood 8.1 mg/dL (8.5-10.1); Chloride, Blood 112 mmol/L (98-108); Creatinine, Blood 1.21 mg/dL (0.60-1.20); Glomerular Filtration Rate >60 (60-); Glucose, Blood 80 mg/dL (70-99); Potassium, Blood 3.7 mmol/L (3.5-5.5); Sodium, Blood 142 mmol/L (136-145); Total Protein, Blood 4.8 g/dL (6.4-8.2)
--- NOTE | 2019-06-24 16:46 | NUR ---
Initial spiritual care note: Mr. Rubi said very little and was difficult to enage in conversation. She was pleasant, but confused. He appears weak with very low energy. He denied pain/concerns. He also declined prayer. Recruitment Assistant Services will remain available to pt and family.
--- NOTE | 2019-06-24 18:09 | NUR ---
PT IS A/OX3,PLEASANT AND COOPERATIVE, PT IS HARD TO UNDERSTAND AT TIMES DUE TO LOOSOSE HPLEMBE IN HIS THROAT, PT WAS SUCTIONED AT TIMES T/O THE DAY, THE PT IS VERY JAUNDICE, THE PT APPEARS TO BE BREATHING EASILY ON RA AT THIS TIME, PTS HOB AT 45 DEGREE, TODAY A DOBHOFF WAS INSERTED BY THE EDITING INTERN AND TUBE FEEDIND WAS STARTED FOR NUTRITION,THE PT WAS UP INTO THE CHAIR X 1 TODAY, THE PT WIRKED WITH BOTH THE PHYSICAL AND OCCUPATIONAL THERAPIST TODAY, DR. ROONEY SPOKE WITH THE PTS TODAY, CALL LIGHT IN REACH WILL CONTINUE TO MONITOR AND ASSESS FOR CHANGES
--- NOTE | 2019-06-25 05:07 | NUR ---
SHIFT SUMMARY PT OVERALL SEEMS TO BE IMPROVING. MENTATION APPEARS CLEARER THIS EVENING. SPEECH STILL GARBLED AND DIFFICULT TO UNDERSTAND BUT SLIGHTLY BETTER. PT MORE ALERT THIS EVENING WHEN AWAKE. SLEPT WELL MOST OF THE NIGHT. SKIN REMAINS JAUNDICED. NO ASCITES NOTED. DOBHOFF IN PLACE AND CONTINUOUS TUBE FEEDINGS RUNNING. RATE INCREASED FROM 25 TO 35 ML/HR AT 2300. DUE NEXT TO INCREASE AT 0700. PT TOLERATING WELL. PT INCONTINENT/CONTINENT. URINE VERY DARK AND ORANGE IN COLOR. NO COMPLAINTS OF PAIN. PT DOES NOT LIKE THE DOBHOFF MUCH BUT HAS BEEN COMPLIANT WITH LEAVING IT IN PLACE AND KEEPING HEAD OF BED ELEVATED 30 DEGREES OR GREATER. ORAL SUCTIONING Q 4 HOURS. LESS SECRETIONS THAN NIGHT BEFORE. HEENA CALLED, UPDATE GIVEN. PT RESTING IN BED AT THIS TIME. VITAL SIGNS STABLE. WILL CONTINUE TO MONITOR.
[2019-06-25 05:17] LABS: Magnesium, Blood 2.6 mg/dL (1.6-2.4)
[2019-06-25 05:18] LABS: Phosphorus, Blood 2.6 mg/dL (2.5-4.9)
[2019-06-25 07:59] LABS: Albumin, Blood 1.8 g/dL (3.4-5.0); Albumin/Globulin Ratio 0.6 (0.8-1.8); Bilirubin, Direct 25.4 mg/dL (0.0-0.3); Bilirubin, Indirect 3.2 mg/dL (0.1-0.7); Bilirubin, Total 28.6 mg/dL (0.1-1.0); Globulin, Blood 3.1 g/dL (2.2-4.0); Total Protein, Blood 4.9 g/dL (6.4-8.2)
[2019-06-25 08:55] LABS: International Normalized Ratio 1.25; Prothrombin Time Results 13.2 Sec (9.7-11.5)
--- NOTE | 2019-06-25 17:08 | NUR ---
PATIENT A/OX3 THIS SHIFT, SPEECH MUFFLED, BUT GETTING BETTER THROUGHOUT THE DAY. VSS, ON RA. UP TO CHAIR TODAY WITH FWW, GB AND 1 ASSIST. NS@ 75ML/HR INFUSING TO L HAND. CONTINUOUS TUBE FEEDS THROUGH DOBHOFF NOW AT GOAL RATE OF 55ML/HR AND [id number] FLUSH Q4H. DENIES ANY PAIN THIS SHIFT. VERY JAUNDICED AND URINE BILIOUS. PATIENT HAS BEEN CONTINENT/INCONTINENT OF URINE THIS SHIFT. CONTINUES TO HAVE LOOSE STOOL. PLAN IS TO D/C TO SNF WHEN STABLE. A-FIB ON TELE WITHOUT ANY EVENTS THIS SHIFT. PATIENT IS CALM AND COOPERATIVE WITH CARE AND CALLS APPROPRIATELY FOR ASSISTANCE.
--- NOTE | 2019-06-25 18:36 | NUR ---
DOBHOFF ACCIDENTLY PULLED OUT BY PATIENT. NEW 8F DOBHOFF PLACED TO L NARE TO 59CM. ADB X-RAY ORDERED TO VERIFY PLACEMENT. PATIENT TOLERATED PROCEDURE WELL.
--- NOTE | 2019-06-25 19:00 | NUR ---
ASSUMED CARE PT RESTING COMFORTABLY, NO S/S ACUTE DISTRESS AT THIS TIME. CALL LIGHT POSSESSIONS IN REACH, BED IN LOWEST POSITION WITH ALARM ON. WILL CONTINUE TO MONITOR.
--- NOTE | 2019-06-25 23:36 | NUR ---
233 LATE ENTRY- PT PULLING AT NGT, ADHESIVE REMOVED FROM NARES. THIS RN REMINDED PT OF NECESSITY OF NGT FOR NUTRITIONAL NEEDS. NGT REPOSITIONED. SPOKE TO XIOMARA BRASHER REGARDING PT'S PULLING AT NGT, ORDERS RECEIVED.
--- NOTE | 2019-06-26 00:30 | NUR ---
GROCERY STOCKER REPORTED TO THIS RN THAT PT HAD COMPLETELY REMOVED NGT. UNABLE TO OBTAIN ANOTHER DOBHOFF NGT, SPOKE TO XIOMARA BRASHER REGARDING SITUATION. STATED TO CONTINUE CBGS ORDERED. WILL CONTINUE TO MONITOR.
[2019-06-26 05:07] LABS: Hematocrit 34.5 % (37.0-53.0); Hemoglobin 11.9 g/dL (13.5-17.5); Mean Corpuscular HGB 38.5 pg (26.0-34.0); Mean Corpuscular HGB Conc 34.5 g/dL (31.5-36.5); Mean Platelet Volume 12.7 fL (9.1-12.4); Platelet Count 204 K/mm3 (150-400); RDW Coefficient Variation 18.9 % (11.7-14.2); RDW Standard Deviation 77.7 fL (35.1-46.3); Red Blood Cell Count 3.09 M/mm3 (4.30-5.90); White Blood Cell Count 12.19 K/mm3 (4.00-11.30)
[2019-06-26 05:08] LABS: Mean Corpuscular Volume 112 fL (80-100)
[2019-06-26 05:17] LABS: International Normalized Ratio 1.29; Prothrombin Time Results 13.6 Sec (9.7-11.5)
[2019-06-26 05:28] LABS: Alanine Aminotransfer (ALT/SGP 31 U/L (12-78); Albumin, Blood 1.8 g/dL (3.4-5.0); Albumin/Globulin Ratio 0.6 (0.8-1.8); Alk Phos 105 U/L (50-136); Anion Gap 5 mmol/L (6-16); Aspartate Aminotrans (AST/SGOT 85 U/L (12-37); Blood Urea Nitrogen 24 mg/dL (8-24); Bun/Creatinine Ratio 19.5 (12.0-20.0); CO2, Blood 24 mmol/L (21-32); Calcium, Blood 8.1 mg/dL (8.5-10.1); Chloride, Blood 117 mmol/L (98-108); Creatinine, Blood 1.23 mg/dL (0.60-1.20); Globulin, Blood 3.1 g/dL (2.2-4.0); Glomerular Filtration Rate >60 (60-); Glucose, Blood 103 mg/dL (70-99); Potassium, Blood 3.8 mmol/L (3.5-5.5); Sodium, Blood 146 mmol/L (136-145); Total Protein, Blood 4.9 g/dL (6.4-8.2)
[2019-06-26 05:46] LABS: Bilirubin, Total 26.7 mg/dL (0.1-1.0)
--- NOTE | 2019-06-26 06:15 | NUR ---
SPOKE TO DR. IZAGUIRRE REGARDING PT'S SODIUM LEVEL. ORDERS RECEIVED.
--- NOTE | 2019-06-26 07:50 | NUR ---
SHIFT SUMMARY PT RESTING COMFORTABLY, NO ACUTE DISTRESS NOTED. NO FURTHER ACUTE EVENTS NOTED T/O SHIFT. CALL LIGHT, POSSESSIONS IN REACH, BED IN LOWEST POSITION WITH ALARM ON, HOB ELEVATED. REPORT GIVEN TO DAY SHIFT RN.
--- NOTE | 2019-06-26 14:07 | NUR ---
PATIENT IS REFUSING CONTINUOUS BIOX. NOTIFIED RT. REMOVED MONITOR FROM FINGER.
--- NOTE | 2019-06-26 15:29 | NUR ---
Clinical Visit/ Comfort care and hospice decision: Pt expressed to nursing staff today that he would like to stop treatments and . He is refusing feeding tube and dobhoff. He has pulled out two NG tubes for medications today. High risk for aspiration. He is being agressive with staff. Met with pt's , Paulina. She states that she had no idea that his condition has gotten "this bad," and she is disappointed that pt will not keep the NG tube in and that he has given up. Comfort measures and hospice services discussed at length. She is requesting to take him home tonight on hospice. 24 hour nursing availability discussed, bath aid, medications, and equipment discussed. Call to Tierra, urgent care physician, to see if [facility] can see pt tonight for admission. [facility] is the only option for hospice due to scheduling at this late hour. She will return call if pt able to go home today with hospice. Paulina met with pt in his room. He has told her that he wants to go home and . She is agreeable to hospice services and requesting that he go home tonight. Tierra returns call to instruct that [facility] is able to take him on services tonight. Equipment will be delivered tomorrow, is aware and agreeable. Updated nursing, call placed to hospitalist for discharge paperwork and referral to hospice. Coordinated with Tierra. She is also coordinating transportation home.
--- NOTE | 2019-06-26 18:23 | NUR ---
SHIFT SUMMARY 1715 ASSUMED CARE OF PT. TX'D FROM RM 306 TO RM 344 VIA BED. PT CHANGED TO COMFORT CARE THIS AFTERNOON AFTER REFUSING ADDITIONAL DOBBHOFF PLACEMENT AND WANTING TO "GO HOME TO ". RECEIVED REPORT FROM TARIK CABRERA. PT ADMITTED FOR HEPATICENCEPHALOPATHY D/T ACUTE ALCOHOLIC HEPATITIS. PT ALSO WITH DIFFICULTY SWALLOWING, FAILING SP EVAL. PT PULLED 2ND DOBBHOFF AND NOT WANTING A 3RD PLACED. PALLIATIVE CARE MET WITH AND FAMILY WHO AGREED PT BE MADE COMFORT CARE AND GO HOME ON HOSPICE. PT UNABLE TO GO HOME TODAY, FAMILY NOT READY UNTIL TOMORROW. PT HAD BEEN PLACED IN SOFT WRIST RESTRAINTS D/T AGGRESSIVE AGITATION. RESTRAINTS D/C'D WHEN TX'D TO COMFORT CARE AND MOVED BACK TO RM 344. PT MEDICATED WITH ATIVAN AND ROXANOL FOR AGITATION AND RESTLESSNESS. PT'S SPEECH IS GARBLED AND SLURRED; VERY DIFFICULT TO UNDERSTAND AT ALL. WILL ATTEMPT TO ANS QUESTIONS, BUT CAN'T UNDERSTAND RESPONSES. BED ALARM ON FOR SAFETY. CALL LT IN REACH.
--- NOTE | 2019-06-26 19:20 | NUR ---
TRANSFER OF CARE: PATIENT TRANSFERRED TO ROOM 344. REPORT GIVEN TO RICK GUERRA.
--- NOTE | 2019-06-27 04:01 | NUR ---
SHIFT SUMMARY PATIENT IS ON COMFORT CARE. DAY RN REPORTED PATIENT WAS AGITATED/AGRESSIVE WHEN PATIENT TRANSFERRED TO SCU. PO ATIVAN AND ROXANOL GIVEN T/O SHIFT PER EMAR. PATIENT HAS NOT BEEN AGITATED/AGRESSIVE THIS SHIFT. NPO AND GARBLED SPEECH. ATROPINE DROPS GIVEN FOR SECRETIONS. PATIENT SLEEPING BUT AUROUSABLE. BEDFAST AND ROOM AIR. SPOUSE CALLED MULTIPLE TIMES AND REPORTS MEDICAL BED HAS BEEN DELIVERED TO HER HOUSE AND SHE IS READY FOR SPOUSE TO DC TODAY ON HOSPICE. PIV REMAINS INTACT. BED IN LOWEST POSITION AND BED ALARM ACTIVATED. CALL LIGHT IN REACH. WILL CONTINUE TO MONITOR UNTIL DAY SHIFT NURSE ASSUMES CARE.
--- NOTE | 2019-06-27 12:27 | NUR ---
PT HAS RESTED QUIETLY TO PRESENT THIS SHIFT. WAITING TO GO HOME ON HOSPICE SHORTLY. HAS WOKE EASILY FOR CARE AND CHANGING. HAS CONTINUED TO DENY PAIN TO PRESENT. WILL REPORT OFF TO RITA CABRERA.
--- NOTE | 2019-06-27 14:15 | NUR ---
PT DISCHARGED HOME ON [facility] . TRANSPORT ARRIVED AT 1410. IV REMOVED AND PT TRANSFERRED TO [facility]. NOTIFIED OF PENDING ARRIVAL.
[2019-06-28 02:10] LABS: HEPATITIS C QUANTITATION HCV Not Detected IU/mL (.)
== END 2019-06-27 14:09 | disposition hospice, home (50) | DRG 432 ==
LOC: ER 12:13 → MEDS 19:33
PROVIDERS: Emergency Medicine; Nurse Practitioner Acute Care; Student in an Organized Health Care Education/Training Program; ADMIT Internal Medicine
DX: K70.10 Alcoholic hepatitis without ascites (principal); G93.41 Metabolic encephalopathy; I48.20 Chronic atrial fibrillation, unspecified; N17.9 Acute kidney failure, unspecified; I50.22 Chronic systolic (congestive) heart failure; N39.0 Urinary tract infection, site not specified; K70.40 Alcoholic hepatic failure without coma; G47.33 Obstructive sleep apnea (adult) (pediatric); J44.9 Chronic obstructive pulmonary disease, unspecified; F10.20 Alcohol dependence, uncomplicated; I11.0 Hypertensive heart disease with heart failure; R13.10 Dysphagia, unspecified; Z91.81 History of falling; R62.7 Adult failure to thrive; Z51.5 Encounter for palliative care; K21.9 Gastro-esophageal reflux disease without esophagitis; Z91.19 Patient's noncompliance with other medical treatment and regimen; F17.210 Nicotine dependence, cigarettes, uncomplicated; I95.9 Hypotension, unspecified
CPT/HCPCS: 36415; 51701; 70450; 71045; 71046; 74018; 74176; 80053; 80074; 80076; 80162; 81001; 82103; 82140; 82390; 82565; 82607; 82746; 82947; 83516; 83605; 83690; 83735; 83880; 84100; 84484; 85025; 85027; 85610; 86038; 87086; 87522; 92526; 92610; 93005; 93010; 94762; 97110; 97162; 97166; 97530; 97535; 99285-25; G0480; J0696; J3411; J7030